=== PATIENT | female | born 1995 | race Caucasian/White ===

== ENCOUNTER 2017-09-04 11:30 | Emergency (ER) | payer BC ==
[2017-09-04 11:44] VITALS: BP 115/71
--- NOTE | 2017-09-04 14:03 | UC ---
Abdominal Pain Female HPI - HPI Summary HPI Summary: Patient presents to the with CC of left sided abdominal pain while trying to sit up or lay down. She states something is "protruding out" when she attempts to sit up or when she coughs. She states a 8/10 pain. Better with rest and back brace. She thinks it may be a herniation. She first noticed it 2 years ago and was able to "push it back in." Today, she states she was unable to push it in and now it is causing pain. Denies discoloration to the skin. Denies N/V/C/D. She is still taking PO well. Concerned with hernia and would like it repaired. - History of Current Complaint Chief Complaint: UCAbdominalPain Stated Complaint: ABD PAIN Time Seen by Provider: 09/04/17 12:33 Hx Obtained From: Patient Hx Last Menstrual Period: 2 weeks ago ?: No Onset/Duration: Sudden Onset Timing: Constant Severity Initially: Mild Severity Currently: Mild Pain Intensity: 0 Pain Scale Used: 0-10 Numeric Location: Discrete At: LUQ Radiates: No Character: Cramping, Sharp Aggravating Factor(s): Movement Alleviating Factor(s): Position Associated Signs and Symptoms: Positive: Negative - Risk Factors Ectopic Risk Factor: Negative Ovarian Torsion Risk Factor: Reproductive Age Allergies/Adverse Reactions: Allergies Allergy/AdvReac Type Severity Reaction Status Date / Time [place] Allergy Severe Diarrhea Verified 03/02/16 20:51 Home Medications: Home Medications Fexofenadine-Pseudoephedrine [[place]-D 24 Hour Allergy] 1 tab PO 09/04/17 [ History] PMH/Surg Hx/FS Hx/Imm Hx Previously Healthy: Yes - Surgical History Surgical History: None - Social History Occupation: Employed Full-time Lives: With Family Alcohol Use: Weekly Substance Use Type: None Smoking Status (MU): Never Smoked Tobacco Review of Systems Constitutional: Negative Skin: Negative Respiratory: Negative Cardiovascular: Negative Gastrointestinal: Abdominal Pain Motor: Negative Neurovascular: Negative Musculoskeletal: Negative Neurological: Negative Is Patient Immunocompromised?: No All Other Systems Reviewed And Are Negative: Yes Physical Exam Triage Information Reviewed: Yes Appearance: Well-Appearing, Well-Nourished Vital Signs: Initial Vital Signs Temp 98.3 F 09/04/17 11:38 Pulse 69 09/04/17 11:38 Resp 16 09/04/17 11:38 BP 115/71 09/04/17 11:38 Pulse Ox 100 09/04/17 11:38 Vital Signs Reviewed: Yes Eye Exam: Normal Eyes: Positive: Conjunctiva Clear Neck exam: Normal Neck: Positive: Nontender, No Lymphadenopathy Respiratory Exam: Normal Respiratory: Positive: Chest non-tender, Lungs clear Cardiovascular Exam: Normal Cardiovascular: Positive: RRR, No Murmur Abdomen Description: Positive: Nontender, Soft, Other: - no masses or hernias noted Musculoskeletal Exam: Normal Musculoskeletal: Positive: Strength Intact Neurological Exam: Normal Neurological: Positive: Alert Psychological: Positive: Normal Response To Family, Age Appropriate Behavior Skin Exam: Normal Abd Pain Female Course/Dx - Course Course Of Treatment: Patient is evaluated for possible ventral hernia. Upon examination she feels pain with sitting or lying back. No hernia is felt over the area of concern, yet she continues to state somehting is "portruding out." She states she is able to push it in several times per day and that feels better. No discoloration or temperature changes are noted to the abdomen. No pulsatile masses. She will be referred to surgery for a possible NON-EMERGENT hernia. She is OK with this plan and I have given her pain control for any worsening symptoms. She will follow up next week. - Differential Dx/Diagnosis Provider Diagnoses: Ventral Hernia Discharge - Discharge Plan Condition: Stable Disposition: HOME Prescriptions: Hydrocodone-Acetaminophen [Hydrocodone/Acetaminophen 10-325 mg] 1 tab PO Q6H # 20 tab MDD 4 Patient Education Materials: Ventral Hernia (ED) Referrals: Saad French MD [Medical Doctor] - No Primary Care Phys,NOPCP [Primary Care Provider] - Additional Instructions: Please follow up with Surgery. Pain medication as needed Ibuprofen 600mg three times daily Moist heat to the area Continue with brace until follow up
== END 2017-09-04 12:50 | disposition home or self-care (01) ==
LOC: UCEAST 11:30
DX: K43.9 Ventral hernia without obstruction or gangrene (principal)
CPT/HCPCS: 99211; G0463

== ENCOUNTER 2018-01-20 07:11 | Emergency (ER) | payer BC ==
[2018-01-20] MEDS ORDERED: Ketorolac INJ* 30 MG/ML 1 ML VIAL IV ONE (08:17)
[2018-01-20 08:41] LABS: ABS Basophils 0.1 10^3/ul (0-0.2); ABS Eosinophils 0.3 10^3/ul (0-0.6); ABS Lymphocytes 3.5 10^3/ul (1.0-4.8); ABS Monocytes 1.3 10^3/ul (0-0.8); ABS Neutrophils 8.9 10^3/ul (1.5-7.7); ABS Nucleated RBC 0 10^3/ul; Hematocrit 35 % (35-47); Hemoglobin 11.6 g/dl (12.0-16.0); Lymphocyte % 24.8 % (25-47); Mean Corpuscular HGB Conc 34 g/dl (31-36); Mean Corpuscular Hemoglobin 28 pg (27-31); Mean Corpuscular Volume 82 fL (80-97); Mean Platelet Volume 8 um3 (7.4-10.4); Nucleated Red Blood Cells % 0; Platelet Count 300 10^3/ul (150-450); Red Blood Count 4.23 10^6/ul (4.0-5.4); Red Cell Distribution Width 13 % (10.5-15); White Blood Count 14.1 10^3/ul (3.5-10.8)
[2018-01-20 08:55] LABS: EGFR Non-African American 120.5 (>60)
[2018-01-20] MEDS ORDERED: Iohexol 300* (CONTRAST) 10 ML SDV IV ONE (09:45)
[2018-01-20 11:06] LABS: Urine Appearance Clear; Urine Blood 1+ (Negative); Urine Color Yellow; Urine Ketones Negative (Negative); Urine Protein Negative (Negative); Urine Specific Gravity 1.008 (1.010-1.030); Urine Urobilinogen Negative (Negative)
--- NOTE | 2018-01-20 11:16 | RAD ---
CLINICAL HISTORY: Abdominal pain COMPARISON: December 14, 2012 TECHNIQUE: Multiple contiguous axial CT scans were obtained of the abdomen and pelvis after the administration of intravenous contrast. Coronal and sagittal multiplanar reformations are submitted for review. Oral contrast was administered. Delayed images were obtained through the abdomen and pelvis. FINDINGS: LUNG BASES: The lung bases are clear. LIVER: The liver measures 21 cm in long axis, slightly increased from the previous examination. There are no focal hepatic parenchymal masses. BILE DUCTS: There is no intrahepatic or extrahepatic biliary dilatation. GALLBLADDER: The gallbladder is normal, without pericholecystic inflammatory change. PANCREAS: The pancreas is normal, without mass or ductal dilatation. SPLEEN: Normal in size and appearance. UPPER GI TRACT: Evaluation of the gastrointestinal tract is limited by incomplete gastric distention. The upper GI tract is unremarkable. SMALL BOWEL AND MESENTERY: The small bowel is normal in contour, course, and caliber. There is no obstruction or dilatation. COLON: The colon is normal in contour, course, caliber. There is no pericolonic inflammatory change. The appendix is not well-visualized, but is possibly identified on axial images 53 through 57. There is no appreciable periappendiceal inflammatory change. ADRENALS: Normal bilaterally. KIDNEYS: The kidneys are normal in shape, size, contour, and axis. There is no hydronephrosis or nephrolithiasis. BLADDER: The bladder is incompletely distended but is grossly normal. PELVIC ORGANS: Again noted is a left ovarian cyst measuring 4 x 3.3 x 3.4 cm in size. This is similar in size and appearance to the December 14, 2012 examination. AORTA: The aorta is normal. IVC: Unremarkable LYMPH NODES: There is no lymphadenopathy by size criteria. ABDOMINAL WALL: There is no evidence for abdominal wall hernia. BONES AND SOFT TISSUES: The bones and soft tissues are unremarkable. OTHER: None IMPRESSION: 1. HEPATOMEGALY, SLIGHTLY PROGRESSED FROM THE 2013 EXAMINATION. 2. AGAIN NOTED IS A LEFT OVARIAN CYST MEASURING APPROXIMATELY 4 CM IN SIZE. GIVEN THE PERSISTENCE FROM THE 2013 EXAMINATION, CONSIDER\CONSULTATION FOR FURTHER EVALUATION.
[2018-01-20] MEDS ORDERED: Potassium Chlor TAB* 20 MEQ TAB.ER PO ONE (11:48)
[2018-01-20 12:10] VITALS: BP 116/80
--- NOTE | 2018-01-21 16:08 | ED ---
Nathanael Garcia Angela, scribed for Drake Recinos MD on 01/20/18 at 0740 . Abdominal Pain/Female - HPI Summary HPI Summary: This pt is a 22 y/o female presenting to [facility] c/o left sided abd pain that began at 06:30 this morning. Pt reports that when she bends over "something pops out" of her abdomen. She notes that 2-3 years ago she had a hernia pop out. Pt states that when her hernia pops out she rates her pain 9/10 in severity. She notes her pain is alleviated with rest. Pt has seen Dr. French, surgeon, in the past. LMP: 1 week ago. - History of Current Complaint Stated Complaint: ABD PAIN Hx Obtained From: Patient Hx Last Menstrual Period: 1 week ago Onset/Duration: Lasting Hours, Still Present Timing: Hours Severity Currently: Moderate Pain Intensity: 6 Pain Scale Used: 0-10 Numeric Location: Diffuse Radiates: No Aggravating Factor(s): Other: - bending over Alleviating Factor(s): Other: - rest Associated Signs and Symptoms: Positive: Negative Allergies/Adverse Reactions: Allergies Allergy/AdvReac Type Severity Reaction Status Date / Time [place] And Derivatives Allergy Severe Diarrhea Verified 01/20/18 08:13 Dairy AdvReac Diarrhea Uncoded 01/20/18 07:17 PMH/Surg Hx/FS Hx/Imm Hx Endocrine/Hematology History: Denies: Hx Diabetes Cardiovascular History: Denies: Hx Hypertension GI History: Reports: Other GI Disorders - IBS - Surgical History Surgery Procedure, Year, and Place: none Infectious Disease History: No Infectious Disease History: Denies: History Other Infectious Disease, Traveled Outside the [place] in Last 30 Days - Family History Known Family History: Positive: Hypertension, Diabetes, Other - high cholesterol - Social History Alcohol Use: Weekly Substance Use Type: Reports: None Smoking Status (MU): Never Smoked Tobacco Review of Systems Negative: Fever, Chills Eyes: Negative ENT: Negative Positive: Abdominal Pain Skin: Negative Neurological: Negative All Other Systems Reviewed And Are Negative: Yes Physical Exam - Summary Physical Exam Summary: VITAL SIGNS: Reviewed. GENERAL: Patient is a well-developed and nourished female who is lying comfortable in the stretcher. Patient is not in any acute respiratory distress. HEAD AND FACE: Normocephalic and atraumatic. EYES: PERRLA, EOMI x 2, No injected conjunctiva. EARS: Hearing grossly intact. Ear canals and tympanic membranes are WNL. MOUTH: Oropharynx within normal limits. NECK: Supple, trachea is midline, no adenopathy, no JVD. CHEST: Symmetric, no tenderness at palpation LUNGS: Clear to auscultation bilaterally. No wheezing or crackles. CVS: RRR, S1 and S2 present, no murmurs or gallops appreciated. ABDOMEN: Soft. No signs of distention. Positive bowel sounds. No rebound no guarding. No abdominal bruit or pulsations. Pinpoint tenderness in the left periumbilical area. No bulging ventrial hernia but the area is tender. EXTREMITIES: FROM in all major joints, no edema, no cyanosis or clubbing. NEURO: Alert and oriented x 3. No acute neurological deficits. Speech is normal. SKIN: Dry and warm Triage Information Reviewed: Yes Vital Signs On Initial Exam: Initial Vitals Temp Pulse Resp BP Pulse Ox 98.8 F 73 17 121/73 99 01/20/18 07:17 01/20/18 07:17 01/20/18 07:17 01/20/18 07:17 01/20/18 07:17 Vital Signs Reviewed: Yes Diagnostics - Vital Signs Vital Signs Temp Pulse Resp BP Pulse Ox 01/20/18 07:17 98.8 F 73 17 121/73 99 - Laboratory Lab Results: Lab Results 01/20/18 01/20/18 01/20/18 Range/Units 08:26 08:26 10:26 WBC 14.1 H (3.5-10.8) 10^3/ul RBC 4.23 (4.0-5.4) 10^6/ul Hgb 11.6 L (12.0-16.0) g/dl Hct 35 (35-47) % MCV 82 (80-97) fL MCH 28 (27-31) pg MCHC 34 (31-36) g/dl RDW 13 (10.5-15) % Plt Count 300 (150-450) 10^3/ul MPV 8 (7.4-10.4) um3 Neut % (Auto) 63.2 (38-83) % Lymph % (Auto) 24.8 L (25-47) % [place] % (Auto) 9.6 H (0-7) % Eos % (Auto) 2.0 (0-6) % Baso % (Auto) 0.4 (0-2) % Absolute Neuts (auto) 8.9 H (1.5-7.7) 10^3/ul Absolute Lymphs (auto) 3.5 (1.0-4.8) 10^3/ul Absolute Monos (auto) 1.3 H (0-0.8) 10^3/ul Absolute Eos (auto) 0.3 (0-0.6) 10^3/ul Absolute Basos (auto) 0.1 (0-0.2) 10^3/ul Absolute Nucleated RBC 0 10^3/ul Nucleated RBC % 0 Sodium 134 (133-145) mmol/L Potassium 3.4 L (3.5-5.0) mmol/L Chloride 104 (101-111) mmol/L Carbon Dioxide 23 (22-32) mmol/L Anion Gap 7 (2-11) mmol/L BUN 9 (6-24) mg/dL Creatinine 0.61 (0.51-0.95) mg/dL Est GFR ( Amer) 155.0 (>60) Est GFR (Non-Af Amer) 120.5 (>60) BUN/Creatinine Ratio 14.8 (8-20) Glucose 92 (70-100) mg/dL Calcium 9.5 (8.6-10.3) mg/dL Total Bilirubin 0.50 (0.2-1.0) mg/dL AST 18 (13-39) U/L ALT 10 (7-52) U/L Alkaline Phosphatase 51 (34-104) U/L Total Creatine Kinase 70 (10-223) U/L C-Reactive Protein 26.31 H (< 5.00) mg/L Total Protein 7.1 (6.4-8.9) g/dL Albumin 3.9 (3.2-5.2) g/dL Globulin 3.2 (2-4) g/dL Albumin/Globulin Ratio 1.2 (1-3) Lipase 16 (11.0-82.0) U/L Beta HCG, Quant < 0.60 mIU/mL Urine Color Yellow Urine Appearance Clear Urine pH 6.0 (5-9) Ur Specific [place] 1.008 L (1.010-1.030) Urine Protein Negative (Negative) Urine Ketones Negative (Negative) Urine Blood 1+ A (Negative) Urine Nitrate Negative (Negative) Urine Bilirubin Negative (Negative) Urine Urobilinogen Negative (Negative) Ur Leukocyte Esterase Negative (Negative) Urine WBC (Auto) Trace(0-5/hpf) (Absent) Urine RBC (Auto) Trace(0-2/hpf) (Absent) Ur Squamous Epith Cells Present A (Absent) Urine Bacteria Absent (Absent) Urine Glucose Negative (Negative) Result Diagrams: 01/20/18 08:26 01/20/18 08:26 Lab Statement: Any lab studies that have been ordered have been reviewed, and results considered in the medical decision making process. - CT Abdomen/Pelvis CT CT Interpretation: Positive (See Comments) - IMPRESSION: 1. Hepatomegaly, slightly progressed from the 2013 examination. 2. Again noted is a left ovarian cyst measuring approximately 4 cm in size. Given the persistence from the 2013 examination, consider consultation for further evaluation. Dr. Recinos has reviewed this radiology report. CT Interpretation Completed By: Radiologist Re-Evaluation - Re-Evaluation First Eval Re-Evaluation Time: 11:31 Comment: I reviewed the CT and lab results with the pt. Abdominal Pain Fem Course/Dx - Course Course Of Treatment: This pt is a 22 y/o female presenting to [facility] c/o left sided abd pain that began at 06:30 this morning. Pt reports that when she bends over "something pops out" of her abdomen. She notes that 2-3 years ago she had a hernia pop out. Pt states that when her hernia pops out she rates her pain 9/ 10 in severity. She notes her pain is alleviated with rest. Pt has seen Dr. French, surgeon, in the past. LMP: 1 week ago. Test results without any significant abnormalities except WBC of 14.1, potassium of 3.4 for which the pt was given potassium chloride, CRP of 26.3. Urinalysis is negative for UTI. Abdomen/pelvis CT shows 1. Hepatomegaly, slightly progressed from the 2013 examination. 2. Again noted is a left ovarian cyst measuring approximately 4 cm in size. Given the persistence from the 2013 examination, consider consultation for further evaluation. In the ED course the pt was given Toradol and the pain resolved. I repeated the physical exam multiple times, the abdomen is soft without tenderness except in left periumbilical area where the pt reports she occasionally has a bulging mass. She has been worked up by Dr. French for a ventral hernia and up to this point it has been negative. However at this point the pt is asymptomatic and will be discharged home with follow up from PCP. Pt is hemodynamically stable, alert and oriented x3. - Diagnoses Provider Diagnoses: Abdominal pain, Periumbilical pain Discharge - Discharge Plan Condition: Stable Disposition: HOME Patient Education Materials: Abdominal Pain (ED) Referrals: Phani Red DO [Primary Care Provider] - 3 Days Additional Instructions: Please follow up with your primary care provider. RETURN TO THE ED FOR ANY WORSENING SYMPTOMS. The documentation as recorded by the Nathanael moreira Angela accurately reflects the service I personally performed and the decisions made by , Drake Recinos MD.
== END 2018-01-20 12:09 | disposition home or self-care (01) ==
LOC: ED 07:11
DX: R10.33 Periumbilical pain (principal); R16.0 Hepatomegaly, not elsewhere classified; N83.202 Unspecified ovarian cyst, left side
CPT/HCPCS: 36415; 74177; 80053; 81003; 81015; 82550; 83690; 84702; 85025; 86140; 87086; 96374; 99283; A9270-GY; J1885; Q9967

== ENCOUNTER 2020-11-29 21:27 | Inpatient (IN) ==
[2020-11-29] MEDS ORDERED: Buffered Lidocaine 1% SYRIN 1 ml INTRADERM ONE (22:56)
[2020-11-29] MEDS ORDERED: Dinoprostone 10 MG VAG.SUPP VAGINAL ONE (22:56)
[2020-11-29] MEDS ORDERED: Lactated Ringers 1000 ml BAG 1,000 ML IV ONE (22:56)
[2020-11-29] MEDS ORDERED: Lactated Ringers 1000 ml BAG 1,000 ML IV SCH (23:00)
[2020-11-29 23:51] LABS: ABS Eosinophils 0.1 10^3/ul (0-0.6); ABS Lymphocytes 2.4 10^3/ul (1.0-4.8); ABS Monocytes 0.8 10^3/ul (0-0.8); ABS Neutrophils 5.7 10^3/ul (1.5-7.7); Eosinophil % 1.6 %; Hematocrit 33 % (35-47); Hemoglobin 11.1 g/dL (12.0-16.0); Lymphocyte % 26.6 %; Mean Corpuscular HGB Conc 34 g/dL (31-36); Mean Corpuscular Hemoglobin 29 pg (27-31); Mean Corpuscular Volume 85 fL (80-97); Mean Platelet Volume 9.1 fL (7.4-10.4); Platelet Count 228 10^3/uL (150-450); Red Blood Count 3.86 10^6 /uL (3.70-4.87); Red Cell Distribution Width 14 % (10-15); White Blood Count 9.1 10^3/uL (3.5-10.8)
[2020-11-29] MEDS ORDERED: Morphine 10 MG/ML VIAL (1 ml) IV PRN (23:58)
[2020-11-29] MEDS ORDERED: Promethazine INJ(RESTRICTED) 25 MG/ML 1 ml VIAL IV PRN (23:59)
[2020-11-30 03:42] LABS: Urine Benzodiazepine Screen None Detected (None Detect); Urine Cannabinoids Screen Presumptive Positive (None Detect); Urine Opiates Screen None Detected (None Detect)
[2020-11-30] MEDS ORDERED: Oxytocin in LR 20 UNITS/1,000 ML BAG IVPB SCH (12:00)
[2020-11-30] MEDS ORDERED: OBEPIDURAL 250 ML EPIDURAL ONE (13:59)
[2020-11-30] MEDS ORDERED: fentaNYL 100 mcg/2 ml 50 MCG/ML VIAL ONE ×2 (14:20→22:57)
[2020-11-30] MEDS ORDERED: Lactated Ringers 1000 ml BAG 1,000 ML IV SCH (15:00)
[2020-11-30] MEDS ORDERED: OBEPIDURAL 250 ML EPIDURAL SCH (15:00)
[2020-11-30] MEDS ORDERED: EPHEDrine (Pressors) 50 MG/ML VIAL IV PUSH PRN ×2 (15:00)
[2020-11-30] MEDS ORDERED: Lactated Ringers 1000 ml BAG 1,000 ML IV ONE (15:00)
[2020-11-30] MEDS ORDERED: Phenylephrine 40 mcg/mL 10mL (400mcg) SYRINGE IV PUSH PRN ×2 (15:00)
[2020-11-30] MEDS ORDERED: Sodium Citrate/Citric Acid LIQ 15 ML UDC PO PRN (15:00)
[2020-11-30] MEDS ORDERED: Lidocaine 2% PF 10 ML AMP ONE ×4 (20:15→22:44)
[2020-11-30] MEDS ORDERED: Lidocaine 2% PF 5 ML VIAL ONE (22:44)
[2020-11-30] MEDS ORDERED: Ondansetron 4 mg VIAL 2 MG/ML 2 ml VIAL ONE (22:50)
[2020-11-30] MEDS ORDERED: ceFOXitin 2 GM IVPREMIX 2 GM/50 ML BAG ONE (22:55)
[2020-11-30] MEDS ORDERED: Morphine PF AMP (0.5MG/ML) 5 MG/10 ML AMP ONE (22:57)
[2020-11-30] MEDS ORDERED: Phenylephrine 40 mcg/mL 10mL (400mcg) SYRINGE ONE (23:02)
[2020-11-30] MEDS ORDERED: Oxytocin 10 UNITS/ML 1 ML VIAL ONE (23:17)
[2020-11-30] MEDS ORDERED: Midazolam 2 mg/2 ml VIAL 1 mg/ml 2 ml VIAL (2 mg) ONE (23:35)
[2020-11-30] MEDS ORDERED: Propofol 10 MG/ML 20 ML BTL ONE ×2 (23:37)
[2020-11-30] MEDS ORDERED: Rocuronium 50 mg VIAL 10 mg/ml 5 ml VIAL (50 mg) ONE (23:37)
[2020-11-30] MEDS ORDERED: Methylergonovine 0.2 mg AMPULE 1 ml AMP ONE (23:43)
[2020-11-30] MEDS ORDERED: fentaNYL 250 mcg/5 ml 50 MCG/ML 5 ml VIAL (250 MCG) ONE (23:48)
[2020-12-01] MEDS ORDERED: fentaNYL 100 mcg/2 ml 50 MCG/ML VIAL IV PRN (00:03)
[2020-12-01] MEDS ORDERED: Ondansetron 4 mg VIAL 2 MG/ML 2 ml VIAL IV PRN ×2 (00:03)
[2020-12-01] MEDS ORDERED: Naloxone 0.4 mg VIAL 0.4 mg/ml 1 ml VIAL IV PRN ×2 (00:03)
[2020-12-01] MEDS ORDERED: HYDROmorphone 1 MG/1 ML SYRINGE IV PRN (00:03)
[2020-12-01] MEDS ORDERED: Acetaminophen IV 1 GM/100ML 1,000 MG/100 ML VIAL IVPB ONE (00:03)
[2020-12-01] MEDS ORDERED: Glycerin ADULT 2.4 gm SUPP PR PRN (00:35)
[2020-12-01] MEDS ORDERED: Witch Hazel PAD JAR TOPICAL PRN (00:35)
[2020-12-01] MEDS ORDERED: Dibucaine 1% OINT 28.35 GM TUBE PR PRN (00:35)
[2020-12-01] MEDS ORDERED: Lactated Ringers 1000 ml BAG 1,000 ML IV SCH (01:00)
[2020-12-01] MEDS: HYDROmorphone 0.5 MG/0.5 ML SYRINGE IV PRN ×2 (01:45→01:54)
[2020-12-01] MEDS ORDERED: Promethazine INJ(RESTRICTED) 25 MG/ML 1 ml VIAL IV ONE (02:22)
[2020-12-01] MEDS ORDERED: Lidocaine 1% VIAL 10 MG/ML VIAL ONE (05:23)
[2020-12-01 06:47] LABS: ABS Basophils 0.1 10^3/ul (0-0.2); ABS Monocytes 1.2 10^3/ul (0-0.8); Eosinophil % 0.1 %; Hematocrit 28 % (35-47); Hemoglobin 9.5 g/dL (12.0-16.0); Lymphocyte % 14.1 %; Mean Corpuscular HGB Conc 34 g/dL (31-36); Mean Corpuscular Hemoglobin 29 pg (27-31); Mean Corpuscular Volume 85 fL (80-97); Mean Platelet Volume 8.6 fL (7.4-10.4); Platelet Count 170 10^3/uL (150-450); Red Blood Count 3.31 10^6 /uL (3.70-4.87); Red Cell Distribution Width 13 % (10-15); White Blood Count 14.2 10^3/uL (3.5-10.8)
[2020-12-03 08:12] VITALS: BP 115/68
[2020-12-03] MEDS ORDERED: RHO D Immune Globulin (HUMAN) 300 MCG = 1,500 I.U. INJ IM ONE (08:38)
[2020-12-04] MEDS ORDERED: Scopolamine PATCH Remove NOTE PATCH OFF SCH (03:00)
== END 2020-12-03 15:42 | disposition home or self-care (01) | DRG 540 ==
LOC: MCHOBOUT 21:27 → MCHOB 22:53
PROVIDERS: ADMIT Obstetrics & Gynecology; ATTEND Obstetrics & Gynecology